=== PATIENT | male | born 2000 | race Caucasian/White ===

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

== ENCOUNTER 2020-07-18 03:14 | Outpatient (CLI) | payer MEDICAID, SELFPAY ==
[2020-07-19 04:00] LABS: COVID-19 RT-PCR UVMMC Result Negative (Negative)
== END 2020-07-18 03:34 ==
PROVIDERS: PCP Pediatrics; Visit Provider Pediatrics
DX: Z11.59 Encounter for screening for other viral diseases (principal)
CPT/HCPCS: U0003

== ENCOUNTER 2023-09-13 11:20 | Emergency (ER) | payer MEDICAID, SELFPAY ==
[2023-09-13 11:26] VITALS: BP 122/78; PULSE 70; RESP 17; O2SAT 99
--- NOTE | 2023-09-13 11:48 | ED.GENADUL_ITS ---
Discharge Plan Disposition Patient Disposition: Home Condition: Good Discharge Details Clinical Impression: Ankle sprain Primary Care Provider: Rose Marie,Local ED Provider: Lizz Salas Home Meds and New Rx's Prescriptions: Continued cephalexin 500 mg capsule 500 mg PO BID Qty: 14 0RF Rx Instructions: take one capsule twice a day for 7 days ibuprofen [Ibuprofen IB] 200 mg Tablet 400 mg Discharge Instructions Instructions: Ankle Sprain (ED) Additional Instructions: XR is reassuring here, no evidence of fracture or dislocation. Please encourage rest, ice, elevation. Tylenol and/or ibuprofen as needed for discomfort. Please take as directed on the packaging. Try to allow this to heal well, avoid strenuous activities that may allow you to rotate your ankle again. You may continue with the boot to support the ankle but please come out of this and do your ankle exercises as previously advised by physical therapy. Referral for local primary care has been sent. HPI General Date/Time Provider Initiated Documentation: 09/13/23 11:39 . Limitations to Documentation: no limitations . Information obtained by: patient, family and RN notes reviewed . History of Present Illness 23 year old M presents to the emergency department with the chief complaint of right ankle pain, described as severe and similar to prior episodes, Quality is described as aching (throbbin), and is localized to the right and lower extremity. Patient reports no radiation. Patient started experiencing this hour(s) and it has been constant. Immobilization improves symptom(s), Movement worsens symptoms . Patient notes no other symptoms.. Patient did receive the following treatments prior to arrival, none Related Data Home Medications Medication Instructions Recorded Confirmed ibuprofen 200 mg tablet (Ibuprofen 400 mg 06/14/18 03/20/21 IB) cephalexin 500 mg capsule 500 mg PO BID #14 caps 02/14/21 03/20/21 Previous Rx's Medication Instructions Recorded cephalexin 500 mg capsule 500 mg PO BID #14 caps 02/14/21 Allergies Allergy/AdvReac Type Severity Reaction Status Date / Time Penicillins Allergy Mild Hives Unverified 02/21/21 15:47 General Stated Complaint: Orthopedic LUKASZ: 4 Review of Systems Constitutional Constitutional: Reports as per HPI and Denies fever(s) Cardiovascular Cardiovascular: Reports as per HPI Respiratory Respiratory: Reports as per HPI Musculoskeletal Musculoskeletal: Reports as per HPI and Denies tingling Integumentary/Breasts Skin/Breast: Reports as per HPI, Denies rash and Denies wounds Neurologic Neurologic: Reports as per HPI, Denies tingling and Denies paresthesias Exam Const General: cooperative, healthy appearing, comfortable, no acute distress, well developed and well groomed Nutritional Appearance: average body habitus and well nourished Orientation: alert and awake Resp Effort & Inspection: normal respiratory effort, able to speak in complete sentences and no respiratory distress Cardio Rate: regular rate Rhythm: regular rhythm Skin General skin exam: no rashes or lesions noted Lesions: no lesions Rashes: no rashes Trauma: no lacerations or abrasions Neuro General: patient alert and patient awake Cognition: normal cognition Speech: speech normal Gait: antalgic Motor: muscle tone normal throughout Sensory Exam: no sensory deficits noted Extrem Ankle/foot/toe images: 2 1. Area of discomfort. 2+ distal pulses. Sensation is intact. No pain over the proximal fibular head or neck. Achilles is palpated to be intact, negative Kimble test. He is no pain over the proximal fifth metatarsal or elsewhere about the foot. No pain in the heel. Does have some mild tenderness over the lateral malleolus but pain is maximal over the ATFL. Does have swelling in this area. No discoloration. No palpable deformity Course Vital Signs Vital signs: Vital Signs Pulse 70 09/13/23 11:26 Respiratory Rate 17 09/13/23 11:26 Blood Pressure 122/78 09/13/23 11:26 Pulse Oximetry 99 09/13/23 11:26 Pulse 70 09/13/23 11:26 Respiratory Rate 17 09/13/23 11:26 Blood Pressure 122/78 09/13/23 11:26 Blood Pressure Position Sitting 09/13/23 11:26 Pulse Oximetry 99 09/13/23 11:26 Medical Decision Making Patient is a pleasant 23-year-old male, accompanied by significant other, presenting today with chief complaint of right ankle pain. He reports that about 1 hour prior to arrival he rolled his ankle while playing basketball when he jumped up and landed on someone's elses Foot causing him to have a internal rotational injury. He denies any numbness or tingling. Denies other injury of the incident. Has not taken anything as of yet for his discomfort, declines any analgesics at this time. on exam, patient appears nontoxic. He is ambulating with an antalgic gait. He has notable swelling over the lateral malleolus which is Achilles is palpated to be intact, negative Kimble test. He has 2+ distal pulses. Sensation is intact. No pain over the fifth metatarsal or elsewhere about the foot. No pain over the calcaneus. No pain over the proximal fibular head or neck. Will obtain x-ray to evaluate for potential bony abnormality. Area of tenderness. Her maximal area of tenderness is over the ATFL. FINDINGS: Bones/joints: There is mild degenerative disease of the right acromioclavicular joint. Soft tissues: Normal. IMPRESSION: No acute fracture or dislocation Discussed with patient and signficant other. Encouraged RICE. Will fit with book for stability in setting of sprain. Encouraged APAP/NSAID PRN for pain. Return precautions discussed. Will have him f/u with PCP in 2 weeks for reevaluation. All of his quesitons and concerns were addressed, he is in agreement iwth this plan. Quality:SDOH Health Related Social Needs: 2 No Data to Display PFSH All Active Problems (Updated 09/13/23 @ 13:09 by MULU June) Ankle sprain (Acute) Ingrown nail of great toe of right foot (Acute) Routine sports physical exam (Chronic 04/06/18) Cleared for sports Acne (Chronic) Routine adult health maintenance (Chronic) Depression screen (Chronic 05/10/14) NEGATIVE Medical History (Updated 09/13/23 @ 13:09 by MULU June) Asthma NO MEDS OR SYMPTOMS SINCE AGE 5 YEARS Fx clavicle 2012 R Penicillin allergy Fx. left wrist 2010 Wheezing HYPODECALCIFIED TEETH Surgical History Repair, Dental Caries GENERAL ANESTHESIA - NO ISSUES Family History Mother Substance abuse Brother Asthma Social History Smoking/Tobacco Use Status: Never Smoking risk assessment performed?: Yes (outside) Alcohol Intake: never Drug use: Never Substance use type: does not use Household members: other Details: mom, sister, brother and at his dad him and his brother Housing: house Do you feel safe at home: Yes Do you feel safe in your relationship?: Yes
--- NOTE | 2023-09-13 12:46 | DI.RAD_ITS ---
Exam(s) XR ANKLE RT COMPLETE EXAM: XR ANKLE RT COMPLETE CLINICAL HISTORY: RIGHT ANKLE PAIN. TECHNIQUE: 2D digital imaging was performed. COMPARISON: No exams were available for comparison FINDINGS: 3 views There is lateral soft tissue swelling but no fracture or widening of the ankle mortise. Talar dome u nremarkable. No osseous tarsal coalition. No incidental osseous lesions. IMPRESSION: No acute osseous findings. No fracture. Lateral soft tissue swelling. DATA REPOSITORY: RADIATION DOSE DELIVERED:
--- NOTE | 2023-09-13 12:49 | DI.VRAD_ITS ---
PROCEDURE INFORMATION: Exam: XR Right Ankle Exam date and time: 09/13/2023 12:40 PM Age: 23 years old Clinical indication: Pain; Right; Patient HX: Rolled ankle TECHNIQUE: Imaging protocol: Radiologic exam of the right ankle. Views: 3 or more views. COMPARISON: No relevant prior studies available. FINDINGS: Bones/joints: No acute fracture or dislocation Soft tissues: Lateral swelling IMPRESSION: No acute fracture Lateral soft tissue swelling Dictated and Authenticated by: Rigo Kraus MD. Ordering:[facility] Lorenza Vergara MD
--- NOTE | 2023-09-13 13:14 | NUR.NOTE ---
Referral given to Rope Laying Machine Operator to help PT establish care for a follow up to ER visit in one week for follow up.
== END 2023-09-13 13:25 | disposition home or self-care (01) ==
PROVIDERS: Emergency Provider Physician Assistant
DX: S93.401A Sprain of unspecified ligament of right ankle, initial encounter (principal); W51.XXXA Accidental striking against or bumped into by another person, initial encounter; Y93.67 Activity, basketball; Y92.39 Other specified sports and athletic area as the place of occurrence of the external cause
CPT/HCPCS: 99283; 73610

== ENCOUNTER 2024-08-25 21:14 | Emergency (ER) | payer MEDICAID, SELFPAY ==
[2024-08-25 21:21] VITALS: BP 147/87; PULSE 91; RESP 12; TEMP 36.7; O2SAT 100
[2024-08-25] MEDS: Diph,Pertuss(Acell),Tet Vac/Pf 0.5 ML SYR IM (21:37)
--- NOTE | 2024-08-25 21:56 | ED.GENADUL_ITS ---
Discharge Plan Disposition Patient Disposition: Home Condition: Stable Discharge Details Clinical Impression: Laceration of knee Primary Care Provider: Unknown,Unknown ED Provider: Bita Grossman Discharge Instructions Instructions: Laceration Repair With Stitches ED Additional Instructions: You were seen in the emergency department today for evaluation of a knee injury and were found to have a laceration. Reassuringly, the remainder of your knee examination was quite reassuring. You received a tetanus booster, and had stitches placed in the knee which need to be removed in 10 to 14 days. Please avoid soaking or scrubbing the wound, though it is safe for you to shower and let soapy water run over it. Please pat it dry and then use bacitracin and a bandage to keep the area clean. We referred you to establish with a primary care provider. Please follow-up with this provider with any concerns, or return to the emergency department if you develop fever, chills, pus coming out of the wound, or other symptoms that cause you concern. Thank you for allowing us to be part of your care. HPI General Mode of arrival: ambulatory . Date/Time Provider Initiated Documentation: 08/25/24 21:15 . Limitations to Documentation: no limitations . Information obtained by: patient and old records reviewed . HPI Narrative: HPI: This is a 24-year-old male patient, previously healthy and fully vaccinated presenting for evaluation of a knee injury. The patient reports he was playing basketball, and collided with another player who was wearing a metal knee brace. The brace caught his right knee, patient reports that he did not fall or sustain any additional injury. He was able to stand on the knee, but did note some discomfort in the area of the laceration especially when he bent the knee. Prior to this the patient was in his normal state of health. He presented to care because he was concerned when the wound kept bleeding especially when he moved. Exam: Gen: Awake and alert, in no apparent distress HEENT: Non-icteric sclera Neck: Supple Lungs: No apparent respiratory distress, normal respiratory effort. CV: Appears well perfused Abdomen: Non-distended MSK: Moves 4 extremities without apparent limitation in ROM. Full range of motion of the knee without pain or limitation, patella mobile, no tenderness to palpation of the medial or lateral joint lines. No significant knee effusion palpable. No laxity with valgus and varus stress testing, Nam's. Skin: Visualized skin without rashes, cyanosis. The patient has a 3 cm laceration overlying the lateral edge of the patella, superficial and does not involve the deeper structures or joint space. Neuro: Normal Gait, no obvious focal deficits or facial asymmetry. Speaks in full, clear sentences. CSM's intact and symmetrical bilaterally Psych: Appropriate for situation. MDM: This is a 24-year-old male patient presenting for evaluation of a new laceration. Differential includes but is not limited to laceration, certainly considered osseous knee injury such as fracture or dislocation, ligamentous injury, sprain, though the patient is without evidence of such on physical examination, is ambulatory and without significant pain. Considered contusion, I have a low concern for joint space violation given the location and superficial nature of the laceration. ED Course: The patient's tetanus was updated, and laceration repair was perfor med, 5 horizontal mattress sutures placed with 4-0 chromic. Patient tolerated the procedure well and without complication. Sutures to be removed in 10 to 14 days. A referral to primary care was placed. At this time, the patient has had a full medical evaluation and is safe for discharge to home. They are hemodynamically stable, ambulatory, and tolerating PO. They are understanding of the follow-up plan and return precautions. They left our facility without incident. Bita Grossman MD Related Data Allergies Allergy/AdvReac Type Severity Reaction Status Date / Time Penicillins Allergy Mild Hives Verified 08/25/24 21:20 General Stated Complaint: Laceration LUKASZ: 4 Course Vital Signs Vital signs: Vital Signs Temperature 36.7 C 08/25/24 21:21 Pulse 91 H 08/25/24 21:21 Respiratory Rate 12 08/25/24 21:21 Blood Pressure 147/87 H 08/25/24 21:21 Pulse Oximetry 100 08/25/24 21:21 Temperature 36.7 C 08/25/24 21:21 Temperature Source Temporal Artery Scan 08/25/24 21:21 Pulse 91 H 08/25/24 21:21 Respiratory Rate 12 08/25/24 21:21 Blood Pressure 147/87 H 08/25/24 21:21 Blood Pressure Position Sitting 08/25/24 21:21 Pulse Oximetry 100 08/25/24 21:21 Oxygen Delivery Method Room Air 08/25/24 21:21 Oxygen Flow Rate 0 08/25/24 21:21 Pain Level 3 08/25/24 21:42 Procedure Laceration Laceration 1: Date of Procedure: 08/25/24 Time of procedure: 22:02 Provider that performed the procedure: Bita Grossman Standard Time Out Performed: No Patient Consented: Verbally Site: lower extremity Side (If applicable): right Description: linear Depth: simple, single layer Local anesthetic: Lidocaine 2% and with Epi Amount of anesthesia used (mL): 5 Pre-repair:: wound explored, irrigated extensively and deep structures intact Skin layer closed with: nylon Size (cm): 4-0 Number of sutures:: 5 Technique: horizontal mattress Complications: None Medical Decision Making Quality:SDOH Health Related Social Needs: No Data to Display PFSH All Active Problems (Updated 08/25/24 @ 21:58 by Bita Grossman MD) Laceration of knee (Acute) Ingrown nail of great toe of right foot (Acute) Routine sports physical exam (Chronic 04/06/18) Cleared for sports Acne (Chronic) Routine adult health maintenance (Chronic) Depression screen (Chronic 05/10/14) NEGATIVE Medical History (Updated 08/25/24 @ 21:58 by Bita Grossman MD) Asthma NO MEDS OR SYMPTOMS SINCE AGE 5 YEARS Fx clavicle 2012 R Penicillin allergy Fx. left wrist 2010 Wheezing HYPODECALCIFIED TEETH Surgical History Repair, Dental Caries GENERAL ANESTHESIA - NO ISSUES Family History Mother Substance abuse Brother Asthma Social History Smoking/Tobacco Use Status: Never Smoking risk assessment performed?: Yes (outside) Alcohol Intake: never Drug use: Never Substance use type: does not use Household members: other Details: mom, sister, brother and at his dad him and his brother Housing: house Do you feel safe at home: Yes Do you feel safe in your relationship?: Yes
== END 2024-08-25 22:13 | disposition home or self-care (01) ==
PROVIDERS: Emergency Provider Emergency Medicine
DX: S81.011A Laceration without foreign body, right knee, initial encounter (principal); X58.XXXA Exposure to other specified factors, initial encounter
CPT/HCPCS: 12001; 90471; 90715; J2004